=== PATIENT | male | born 2000 | race African-American/Black ===

== ENCOUNTER 2023-01-16 13:46 | Emergency (ER) | payer MEDICAID ==
[~2023-01-16] VITALS: Ht 177.8 cm; Wt 77.0 kg
[2023-01-16 13:51] VITALS: TEMP 99.5; O2SAT 97
[2023-01-16 15:15] VITALS: BP 132/75; PULSE 102; RESP 18
[2023-01-16] MEDS ORDERED: KETOROLAC 60MG/2ML VIAL IM ONE (15:15)
[2023-01-16] MEDS ORDERED: TETANUS, DIPHTHERIA, PERTUSSIS VAC/PF 0.5ML (>10YR OLD) IM ONE (17:45)
== END 2023-01-16 17:59 | disposition home or self-care (01) ==
LOC: ER 13:46
DX: M25.532 Pain in left wrist (principal); V49.9XXA Car occupant (driver) (passenger) injured in unspecified traffic accident, initial encounter; Y93.89 Activity, other specified; Y92.89 Other specified places as the place of occurrence of the external cause; Y99.8 Other external cause status
CPT/HCPCS: 73090; 73110; 96372; 99284; J1885; Z7610